=== PATIENT | male | born 1995 | race Caucasian/White ===

== ENCOUNTER 2018-04-23 14:18 | Emergency (ER) | payer OTHER ==
[~2018-04-23] VITALS: Ht 177.8 cm; Wt 88.5 kg
[2018-04-23] MEDS ORDERED: DELTASONE20 MG PO (15:01)
[2018-04-23] MEDS ORDERED: PEPCID40 MG PO (15:01)
[2018-04-23] MEDS ORDERED: ZYRTEC10 MG PO (15:01)
[2018-04-23] MEDS ORDERED: EPIN0.3P IM (15:01)
== END 2018-04-23 16:19 | disposition home or self-care (01) ==
LOC: ED 14:18
DX: T63.441A Toxic effect of venom of bees, accidental (unintentional), initial encounter (principal); Z91.030 Bee allergy status; Z91.038 Other insect allergy status
CPT/HCPCS: 96372; 99282; J1100; J1200